=== PATIENT | male | born 1935 | race Caucasian/White ===

== ENCOUNTER 2022-05-24 10:37 | Emergency (ER) | payer BC ==
[~2022-05-24] VITALS: Ht 177.8 cm; Wt 87.5 kg
[2022-05-24 11:21] VITALS: BP_SYST 159
[2022-05-24] MEDS ORDERED: KETOROLAC TROMETHAMINE 60 MG/2 ML VIAL IM ONE ×2 (12:30→14:00)
[2022-05-24 13:04] LABS: BASOPHILS # (AUTO) 0.2 K/uL (0.0-0.2); BASOPHILS % (AUTO) 3.1 % (0.0-2.0); EOSINOPHILS # (AUTO) 0.4 K/uL (0.0-0.4); EOSINOPHILS % (AUTO) 4.5 % (0.0-4.0); HEMATOCRIT 44.2 % (36-54); LYMPHOCYTES # (AUTO) 2.3 K/uL (1.0-5.5); LYMPHOCYTES % (AUTO) 29.2 % (20.5-51.5); MEAN CORPUSCULAR VOLUME 91 fL (79.0-98.0); MONOCYTES # (AUTO) 0.4 K/uL (0.0-1.0); MONOCYTES % (AUTO) 5.1 % (1.7-9.3); NEUTROPHILS # (AUTO) 4.6 K/uL (1.8-7.7); NEUTROPHILS % (AUTO) 58.1 % (40.0-70.0); PLATELET COUNT (AUTO) 197 K/uL (130-430); RED BLOOD CELL COUNT(AUTO) 4.83 MIL/uL (4.2-6.2); RED CELL DISTRIBUTION WIDTH 14.3 % (9.0-15.0); WHITE BLOOD COUNT (AUTO) 7.9 K/uL (4.8-10.8)
[2022-05-24 13:32] LABS: ALANINE AMINOTRANSFERASE 22 U/L (12-78); ANION GAP 4 (5-15); ASPARTATE AMINOTRANSFERASE 13 U/L (10-37); CHLORIDE 102 mmol/L (98-107); CREATININE 1.11 mg/dL (0.55-1.30); GLUCOSE 256 mg/dL (70-99); POTASSIUM 4.9 mmol/L (3.5-5.1); TOTAL BILIRUBIN 0.5 mg/dL (0.0-1.0); UREA NITROGEN, BLOOD 16 mg/dL (8-21)
[2022-05-24 13:33] LABS: ALBUMIN 3.7 g/dL (3.4-4.8)
[2022-05-24 13:40] LABS: C-REACTIVE PROTEIN QUANT < 0.2 mg/dL (0-0.5)
[2022-05-24] MEDS ORDERED: HYDR-3917 PO (13:56)
[2022-05-24] MEDS ORDERED: IBUP-1969 PO (13:56)
[2022-05-24 14:22] VITALS: BP_SYST 152
== END 2022-05-24 14:22 | disposition home or self-care (01) ==
LOC: SED 10:37
DX: M75.22 Bicipital tendinitis, left shoulder (principal); M25.512 Pain in left shoulder; Z79.899 Other long term (current) drug therapy
CPT/HCPCS: 99284; 71045; 80053; 84550; 85025; 86140; 84484; 36415; 73030; 96372; J1885